=== PATIENT | male | born 1945 | race Caucasian/White ===

== ENCOUNTER 2016-12-12 05:38 | Outpatient (CLI) | payer MEDICARE, BC ==
[~2016-12-12] VITALS: Ht 172.7 cm; Wt 63.6 kg
[2016-12-12 06:19] LABS: BASOPHILS 0.1 % (0.0-2.0); HEMATOCRIT 34.9 % (42.0-54.0); IMMATURE GRANULOCYTES 0.4 % (0-5); LYMPHOCYTES 11.5 % (15-50); MCH 26.8 pg (26.0-34.0); MCHC 31.5 g/dL (31.0-37.0); MCV 84.9 fL (80.0-100.0); MONOCYTES 8.8 % (2-11); NEUTROPHILS 75.2 % (40-80); PLATELET COUNT 240 10x3/uL (130-400); RBC 4.11 10x6/uL (4.20-6.10); RDW 13.2 % (11.5-14.5)
[2016-12-12] MEDS ORDERED: GLUCOPHAGE500 MG PO (06:24)
[2016-12-12] MEDS ORDERED: ZOCOR40 MG PO (06:24)
[2016-12-12] MEDS ORDERED: GLYBURIDE5 M1 PO (06:24)
[2016-12-12] MEDS ORDERED: SINGULAIR10 MG PO (06:25)
[2016-12-12] MEDS ORDERED: PROAIR HFA8.5 GM INH (06:26)
[2016-12-12] MEDS ORDERED: ATROVENT HFA12.9 GM INH (06:27)
[2016-12-12] MEDS ORDERED: FLOVENT DISKU100 MCG INH (06:28)
[2016-12-12] MEDS ORDERED: COZAAR25 MG PO (06:28)
[2016-12-12] MEDS ORDERED: HYDROCODONE-APA1 TAB PO (06:29)
[2016-12-12] MEDS ORDERED: TRAVATAN Z2.5 ML RIGHT EYE (06:29)
[2016-12-12 06:31] LABS: INR 1.04 (0.85-1.17); PROTIME 13.4 SECONDS (11.6-15.0)
[2016-12-12 06:32] LABS: APTT 35.6 SECONDS (22.8-39.4)
[2016-12-12 06:35] LABS: CALC OSMOLALITY 275 mosm/kg (275-300); CALCIUM 8.9 mg/dL (8.5-10.1); CARBON DIOXIDE 28.9 mmol/L (21.0-32.0); CHLORIDE - SERUM 101 mmol/L (98-107); CREATININE - SERUM 0.7 mg/dL (0.6-1.3); POTASSIUM - SERUM 3.9 mmol/L (3.5-5.1); SODIUM 139 mmol/L (136-145); UREA NITROGEN 13 mg/dL (7-18); eGFR NON AFRICAN AMERICAN > 90 mL/min (90-120)
[2016-12-12 06:36] LABS: GLUCOSE 65 mg/dL (74-106)
[2016-12-12 06:39] VITALS: BP 110/60; Ht 172.7 cm; Wt 63.6 kg
[2016-12-12] MEDS ORDERED: FLOMAX0.4 MG PO (06:39)
--- NOTE | 2016-12-12 09:19 | NUR ---
899-RECEIVED PT FROM IR PT VERY SLEEPY ON 3L O2 VIA NC DENIES ANY PAIN OR NEEDS OR CONCERNS A THIS TIME FAMILY AT BEDSIDE AND CALL LIGHT IN REACH
--- NOTE | 2016-12-12 09:34 | NUR ---
0930 STILL SLEEPY TOLERATING SOME COFFEE THOUGH. PELVIS SITE DRESSING C/D/I NO BLEEDING. FAMILY PRESENT.
--- NOTE | 2016-12-12 09:53 | NUR ---
0945 PELVIC SITE DRESSING C/D/I NO BLEEDING NO COS OF PAIN. WAKING UP MORE DECREASED O2 TO 2L N/C. TRAY SERVED.
--- NOTE | 2016-12-12 10:39 | NUR ---
1030 V/S STABLE SAT OKAY ON ROOM AIR. VOIDED VIA URINAL. ASSISTED WITH DRESSING PATIENT.
--- NOTE | 2016-12-12 10:39 | NUR ---
1038 IV DCD CATHETER INTACT. WENT OVER DISCHARGE INSTRUCTIONS POST CT BIOPSY INFORMATION AND TO CONTINUE HOME MEDS AND VERBALLY UNDER STANDS.
--- NOTE | 2016-12-12 10:50 | NUR ---
1046 DISCHARGED TO HOME VIA W/C WITH FAMILY. HAS CRUTCHES THAT HE USES.
== END 2016-12-12 10:45 | disposition home or self-care (01) ==
LOC: D.OPS 05:38 → D.SP 08:00 → D.OPS 08:00
PROVIDERS: General Practice
DX: C41.4 Malignant neoplasm of pelvic bones, sacrum and coccyx (principal); Z72.0 Tobacco use; J44.9 Chronic obstructive pulmonary disease, unspecified; E11.9 Type 2 diabetes mellitus without complications